=== PATIENT | male | born 1980 | race Two or more races ===

== ENCOUNTER → 2020-07-13 | Emergency (ER) | payer SELFPAY ==
[~2020-07-13] VITALS: Ht 175.3 cm; Wt 72.6 kg
[2020-07-13 13:33] VITALS: BP 145/94
== END | disposition home or self-care (01) ==
LOC: ER 12:32
DX: R07.89 Other chest pain (principal); M54.9 Dorsalgia, unspecified; H92.09 Otalgia, unspecified ear
CPT/HCPCS: 71046